=== PATIENT | male | born 1945 | race Caucasian/White ===

== ENCOUNTER 2018-08-27 19:54 | Emergency (ER) | payer MEDICARE ==
[~2018-08-27] VITALS: Ht 175.3 cm; Wt 96.8 kg
[2018-08-27 20:05] VITALS: BP 150/94; PULSE 78; RESP 18; Ht 175.3 cm; Wt 96.8 kg
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
[2018-08-27] MEDS ORDERED: HYDROCODONE/APAP (10/325) TAB PO ONE (22:00)
[2018-08-27] MEDS ORDERED: ONDANSETRON (ODT) 4 MG TAB ODT STA (22:01)
[2018-08-27] MEDS ORDERED: CYCL10TA7 PO (22:21)
[2018-08-27] MEDS ORDERED: NAPR-985 PO (22:21)
[2018-08-27] MEDS ORDERED: ASPIRIN 325 MG TAB PO ONE (22:30)
== END 2018-08-27 22:55 | disposition home or self-care (01) ==
LOC: FTE 19:54
DX: S20.219A Contusion of unspecified front wall of thorax, initial encounter (principal); M62.838 Other muscle spasm; I10 Essential (primary) hypertension; V47.5XXA Car driver injured in collision with fixed or stationary object in traffic accident, initial encounter; Z98.61 Coronary angioplasty status; Z96.653 Presence of artificial knee joint, bilateral
CPT/HCPCS: 71046; 72040; 72100; 93005